=== PATIENT | female | born 1945 | race Caucasian/White ===

== ENCOUNTER 2016-07-16 13:27 | Emergency (ER) | payer MEDICARE ==
--- NOTE | ~2016-07-16 | CR63 ---
[facility]. [facility] A Service of [facility] & [facility] RADIOLOGY TEXT RESULTS PATIENT: FAINA PACE LOCATION: SED : [birth year] UNIT #: [id number] AGE: [address]: Pasha Carver MD SEX: F ORDER DR: [id number] [address] [address] [id number] E MR#: [id number] Acc #: [id number] NAME: FAINA PACE : 1945 SEX: F STUDY DATE/TIME: 07/16/2016 13:41 UNIT: SED ROOM: STUDY DESCRIPTION: CR Chest 2 View Attending Physician: Pasha Carver M.D. Ordering Physician: Pasha Carver M.D. Primary Care Physician: Willam Beal M.D. MEDICAL IMAGING REPORT This report is preliminary unless electronic signature is present. EXAM Chest PA and lateral, 07/16/2016 COMPARISON 10/15/2014 HISTORY Shortness of breath, cough and congestion for 2 days. FINDINGS PA and lateral views are obtained. Heart size is normal and the lungs appear clear. No acute process identified. CONCLUSION Stable chest. No active disease. Dictated by... Roberto Carlos Harp M.D. THIS IS AN ELECTRONICALLY VERIFIED REPORT Roberto Carlos Harp M.D. at 07/16/2016 5:07 PM Lucille TD: 07/16/2016 15:37 JOB #: [id number] MEDICAL IMAGING REPORT
[~2016-07-16 13:27] MED LIST: ADVAIR 250-501 EAC1 INH; ALBUTEROL0.83 MG/ML INH; ALBUTEROL17 GM INH; AZITHROMYCIN250 MG PO; FLEXERIL10 MG PO; IRON; LISINOPRIL; NO MEDICATIONS; NORVASC PO; PRINIVIL10 MG PO; PROAIR HFA8.5 GM INH; SPIRIVA18 MCG INH; SYMBICORT; TESSALON PERLE100 M1 PO; ULTRAM PO; VITAMIN D; ZESTORETIC 20-1 EACH PO; ZOCOR
== END 2016-07-16 14:35 | disposition home or self-care (01) ==
LOC: SED 13:27
DX: J44.1 Chronic obstructive pulmonary disease with (acute) exacerbation (principal); N18.9 Chronic kidney disease, unspecified
CPT/HCPCS: 71020; 94640; 99283

== ENCOUNTER → 2016-07-27 | Outpatient (CLI) | payer MEDICARE ==
--- NOTE | ~2016-07-27 | US77 ---
[facility] A Service [facility] RADIOLOGY TEXT RESULTS PATIENT: FAINA PACE LOCATION: [facility] : [birth year] UNIT #: [id number] AGE: [address]: Jaylon Blevins MD SEX: F ORDER DR: [id number] [place] [id number] O MR#: [id number] Acc #: [id number] NAME: FAINA PACE : 1945 SEX: F STUDY DATE/TIME: 07/27/2016 9:14 UNIT: [facility] ROOM: STUDY DESCRIPTION: US Kidney Bilateral Complete Attending Physician: Jaylon Blveins M.D. Referring Physician: Jaylon Blevins M.D. Ordering Physician: Jaylon Blevins M.D. Primary Care Physician: Willam Beal M.D. MEDICAL IMAGING REPORT This report is preliminary unless electronic signature is present. EXAM Renal ultrasound. INDICATIONS Chronic kidney disease. Patient had abnormal blood work a month ago. Followup study. TECHNIQUE Briones-scale and color Doppler sonographic images were obtained through the kidneys and bladder. FINDINGS Both kidneys I think are echogenic in appearance with some cortical thinning in keeping with history of chronic medical renal disease. There are bilateral renal cysts. Single largest cyst on the right measures up to 4.8 x 5.3 x 4.2 cm. No solid renal masses are seen in neither kidney. Left kidney the largest cyst measures 2.2 x 2.3 x 1.7 cm. Again no solid renal masses are seen. There is no hydronephrosis. The bladder appears within normal limits although the patient does have some post voiding residual. IMPRESSION 1. Both kidneys do appear somewhat echogenic with cortical thinning in keeping with history of chronic medical renal disease. 2. Bilateral renal cysts. 3. Patient's bladder appears unremarkable, although there is some postvoid residual. 1. Dictated by... Lanny Conner M.D. THIS IS AN ELECTRONICALLY VERIFIED REPORT [facility] A Service of [facility] RADIOLOGY TEXT RESULTS PATIENT: FAINA PACE LOCATION: [facility] #: [id number] : [birth year] UNIT #: [id number] AGE: [address]: Jaylon Blevins MD SEX: F ORDER DR: Lanny Conner M.D. at 07/27/2016 4:39 PM AFF/dj TD: 07/27/2016 14:29 JOB #: [id number] MEDICAL IMAGING REPORT
== END | disposition home or self-care (01) ==
LOC: SGUS 08:53
DX: N18.3 Chronic kidney disease, stage 3 (moderate) (principal); D63.1 Anemia in chronic kidney disease; N25.81 Secondary hyperparathyroidism of renal origin; E55.9 Vitamin D deficiency, unspecified; N28.1 Cyst of kidney, acquired
CPT/HCPCS: 76775

== ENCOUNTER 2016-09-01 10:15 | Emergency (ER) | payer MEDICARE | END 2016-09-01 10:56 | disposition home or self-care (01) | LOC: SED 10:15 | DX: L03.116 Cellulitis of left lower limb (principal); J44.9 Chronic obstructive pulmonary disease, unspecified; N18.3 Chronic kidney disease, stage 3 (moderate) | CPT/HCPCS: 99282 ==

== ENCOUNTER 2016-10-04 15:24 | Emergency (ER) | payer MEDICARE ==
--- NOTE | ~2016-10-04 | CR72 ---
[facility]. [facility] A Service of [facility] RADIOLOGY TEXT RESULTS PATIENT: FAINA PACE LOCATION: SED : [birth year] UNIT #: [id number] AGE: [address]: Reynaldo Gonzalez MD SEX: F ORDER DR: [id number] [address] [address] [id number] E MR#: [id number] Acc #: [id number] NAME: FAINA PACE. : 1945 SEX: F STUDY DATE/TIME: 10/04/2016 15:35 UNIT: SED ROOM: STUDY DESCRIPTION: CR Chest Single View Portable Attending Physician: Reynaldo Gonzalez M.D. Ordering Physician: Reynaldo Gonzalez M.D. Primary Care Physician: Willam Beal M.D. MEDICAL IMAGING REPORT This report is preliminary unless electronic signature is present. EXAM AP portable chest 10/04/2016 HISTORY Shortness of breath for 1 week worse over the last 2 days. FINDINGS An AP view is obtained. The cardiovascular configuration is stable. The lungs are clear. CONCLUSION Stable chest. No active disease. Dictated by... Roberto Carlos Harp M.D. THIS IS AN ELECTRONICALLY VERIFIED REPORT Roberto Carlos Harp M.D. at 10/05/2016 7:10 AM SOUTH/robert TD: 10/04/2016 16:48 JOB #: [id number] MEDICAL IMAGING REPORT Page 1 of 1
--- NOTE | ~2016-10-04 | EKG ---
PATIENT: FAINA PACE UNIT #: [id number] Ventricular Rate: 84 BPM Atrial Rate: 84 BPM P-R Interval: 190 ms QRS Duration: 92 ms Q-T Interval: 380 ms QTC Calculation(Bezet): 449 ms P [place]: 75 degrees Calculated R [place]: 72 degrees Calculated T [place]: 49 degrees Diagnosis Line: Normal sinus rhythm Diagnosis Line: Normal ECG Diagnosis Line: When compared with ECG of 21-MAY-2012 05:58, Diagnosis Line: No significant change was found Diagnosis Line: Confirmed by SACHIN DE LOS SANTOS MD ([id number]) on Diagnosis Line: 10/10/2016 8:49:31 AM INTERPRETING MD: FILIBERTO CLAY
[2016-10-04 16:21] LABS: BASOPHIL# 0.1 X10e3 (0-0.3); BASOPHIL% 0.7 % (0-2.5); DIFF IND NO; EOSINOPHIL# 0.6 X10e3 (0-0.7); EOSINOPHIL% 6.7 % (0.0-7.0); HEMATOCRIT 34.4 % (35.0-45.0); HEMOGLOBIN 11.5 gm/dL (12.0-16.0); LYMPHOCYTE# 1.5 X10e3 (1.0-3.5); LYMPHOCYTE% 17.5 % (17.0-45.0); MEAN CELL VOLUME 81.2 FL (83-96); MEAN CORPUSCULAR HEMOGLOBIN 27.2 PG (28-34); MEAN CORPUSCULAR HGB CONC 33.5 g/dL (30-36); MONOCYTE# 0.6 X10e3 (0-1.0); MONOCYTE% 6.7 % (3.0-12.0); NEUTROPHIL# 5.7 X10e3 (1.5-7.1); NEUTROPHIL% 68.4 % (40-75); PLATELET COUNT 242 X10e3 (140-420); RED BLOOD COUNT 4.24 X10e (3.90-5.30); RED CELL DISTRIBUTION WIDTH 15.6 % (11.0-15.5); WHITE BLOOD COUNT 8.3 X10e3 (4.0-10.5)
[2016-10-04 16:26] LABS: POC - CKMB 2.8 ng/mL (0.0-7.9); POC - TROPONIN <0.05 ng/mL (<=0.05)
[2016-10-04 16:38] LABS: ALBUMIN SERUM 4.5 g/dL (3.5-5.0); BILIRUBIN, DIRECT 0.1 mg/dL (0.0-0.2); BILIRUBIN,INDIRECT 0.1 mg/dL (0.0-0.9); BILIRUBIN,TOTAL 0.2 mg/dL (0.2-2.0); BUN/CREATININE RATIO 28.66; CALCIUM SERUM 9.7 mg/dL (8.4-10.2); CREATININE SERUM 1.5 mg/dL (0.6-1.4); GLOM FILT RATE Estimated 35.2 mL/min (>60); POTASSIUM 4.3 mmol/L (3.5-5.1); PROTEIN TOTAL SERUM 7.8 g/dL (6.0-8.3)
== END 2016-10-04 17:14 | disposition home or self-care (01) ==
LOC: SED 15:24
PROVIDERS: Emergency Medicine
DX: J44.9 Chronic obstructive pulmonary disease, unspecified (principal); I12.9 Hypertensive chronic kidney disease with stage 1 through stage 4 chronic kidney disease, or unspecified chronic kidney disease; N18.3 Chronic kidney disease, stage 3 (moderate); E78.00 Pure hypercholesterolemia, unspecified; Z87.891 Personal history of nicotine dependence; Z79.899 Other long term (current) drug therapy
CPT/HCPCS: 71010; 80048; 80076; 82553; 84484; 85025; 93005; 94640; 96372; 99283; J2930

== ENCOUNTER → 2016-10-24 | Outpatient (CLI) | payer MEDICARE, BC ==
[2016-10-24 09:30] LABS: HEMATOCRIT 34.2 % (35.0-45.0); HEMOGLOBIN 11.4 gm/dL (12.0-16.0); MEAN CELL VOLUME 81.2 FL (83-96); MEAN CORPUSCULAR HGB CONC 33.3 g/dL (30-36); MEAN PLATELET VOLUME 7.4 FL (6.5-11.5); RED BLOOD COUNT 4.21 X10e (3.90-5.30); RED CELL DISTRIBUTION WIDTH 15.1 % (11.0-15.5); WHITE BLOOD COUNT 6.5 X10e3 (4.0-10.5)
[2016-10-24 09:38] LABS: URINE APPEARANCE CLEAR; URINE BILIRUBIN NEG (NEG); URINE BLOOD TRACE-INTACT (NEG); URINE COLOR YELLOW; URINE GLUCOSE NEG (NORM); URINE KETONE NEG (NEG); URINE LEUKOCYTE ESTERASE TRACE (NEG); URINE NITRATE NEG (NEG); URINE PH 5.5 (5-8); URINE PROTEIN NEG (NEG); URINE UROBILINOGEN 0.2 MG/DL (NORM)
[2016-10-24 10:02] LABS: MICRO INDICATED? YES
[2016-10-24 10:15] LABS: BUN/CREATININE RATIO 21.25; CALCIUM SERUM 9.1 mg/dL (8.4-10.2); CREATININE SERUM 1.6 mg/dL (0.6-1.4); GLOM FILT RATE Estimated 32.6 mL/min (>60); POTASSIUM 4.2 mmol/L (3.5-5.1)
[2016-10-24 10:16] LABS: URINE BACTERIA 1+ (NEG); URINE RBC 0-2 /[HPF] (0-2); URINE SQUAMOUS EPITHELIAL CELL OCCAS /[HPF]; URINE WBC 25-50 /[HPF] (0-5)
[2016-10-24 12:14] LABS: CREATININE,RANDOM URINE 82 mg/dL; TOTAL PROTEIN,RANDOM URINE <10 mg/dl (<10)
== END | disposition home or self-care (01) ==
LOC: SLAB 09:11
PROVIDERS: Internal Medicine Nephrology
DX: N18.3 Chronic kidney disease, stage 3 (moderate) (principal); D63.1 Anemia in chronic kidney disease; N25.81 Secondary hyperparathyroidism of renal origin; E55.9 Vitamin D deficiency, unspecified
CPT/HCPCS: 36415; 80048; 81003; 82570; 84156; 85027

== ENCOUNTER → 2017-01-04 | Outpatient (CLI) | payer MEDICARE ==
--- NOTE | ~2017-01-04 | MY11 ---
[facility] A Service [facility] RADIOLOGY TEXT RESULTS PATIENT: FAINA PACE LOCATION: [facility] : [birth year] UNIT #: [id number] AGE: [address]: Willam Beal MD SEX: F ORDER DR: [id number] [place] [id number] O MR#: [id number] Acc #: [id number] NAME: FAINA PACE : 1945 SEX: F STUDY DATE/TIME: 01/04/2017 15:33 UNIT: [facility] ROOM: STUDY DESCRIPTION: MY Mammogram Screening Dig Alex Attending Physician: Willam Beal M.D. Referring Physician: Willam Beal M.D. Ordering Physician: Willam Beal M.D. Primary Care Physician: Willam Beal M.D. MEDICAL IMAGING REPORT This report is preliminary unless electronic signature is present. EXAM Bilateral Digital Screening Mammogram with CAD INDICATION Breast cancer screening. COMPARISON July 09, 2015 and May 24, 2014 INDICATION A 71-year-old asymptomatic female. No personal or family history of breast cancer. FINDINGS The breasts are almost entirely fatty. No suspicious findings are present. IMPRESSION No mammographic evidence of malignancy. Annual screening mammography and clinical breast exam are recommended. A result letter will be sent to the patient. Patients over the age of 40 are entered into a reminder system with target due date for the next mammogram. BIRADS: 1 Negative Dictated by... Burke Martinez M.D. THIS IS AN ELECTRONICALLY VERIFIED REPORT [facility] A Service [facility] RADIOLOGY TEXT RESULTS PATIENT: FAINA PACE LOCATION: [facility] : [birth year] UNIT #: [id number] AGE: [address]: Willam Beal MD SEX: F ORDER DR: Burke Martinez M.D. at 01/10/2017 9:50 PM Edgar TD: 01/07/2017 11:25 JOB #: [id number] MEDICAL IMAGING REPORT Page 1 of 1
== END | disposition home or self-care (01) ==
LOC: SMAM 14:52
DX: Z12.31 Encounter for screening mammogram for malignant neoplasm of breast (principal)
CPT/HCPCS: G0202

== ENCOUNTER → 2017-01-07 | Outpatient (CLI) | payer MEDICARE ==
[2017-01-07 09:55] LABS: HEMATOCRIT 34.5 % (35.0-45.0); HEMOGLOBIN 11.4 gm/dL (12.0-16.0); MEAN CELL VOLUME 80.7 FL (83-96); MEAN CORPUSCULAR HEMOGLOBIN 26.6 PG (28-34); MEAN PLATELET VOLUME 7.5 FL (6.5-11.5); RED BLOOD COUNT 4.27 X10e (3.90-5.30); RED CELL DISTRIBUTION WIDTH 15.3 % (11.0-15.5); WHITE BLOOD COUNT 5.1 X10e3 (4.0-10.5)
[2017-01-07 09:59] LABS: URINE APPEARANCE CLEAR; URINE BILIRUBIN NEG (NEG); URINE BLOOD NEG (NEG); URINE COLOR YELLOW; URINE GLUCOSE NEG (NORM); URINE KETONE NEG (NEG); URINE NITRATE NEG (NEG); URINE PH 5.5 (5-8); URINE PROTEIN NEG (NEG); URINE SPECIFIC GRAVITY 1.015 (1.003-1.035); URINE UROBILINOGEN 0.2 MG/DL (NORM)
[2017-01-07 10:00] LABS: MICRO INDICATED? NO; URINE LEUKOCYTE ESTERASE NEG (NEG)
[2017-01-07 10:53] LABS: BUN/CREATININE RATIO 24.66; CALCIUM SERUM 9.2 mg/dL (8.4-10.2); CREATININE SERUM 1.5 mg/dL (0.6-1.4); GLOM FILT RATE Estimated 35.2 mL/min (>60); PHOSPHOROUS 3.7 mg/dL (2.5-4.6); POTASSIUM 4.7 mmol/L (3.5-5.1)
[2017-01-07 15:32] LABS: CREATININE,RANDOM URINE 82 mg/dL; TOTAL PROTEIN,RANDOM URINE <10 mg/dl (<10)
[2017-01-12 09:09] LABS: CALCIUM (PTHINTACT) 9.4 mg/dL (8.6-10.4)
== END | disposition home or self-care (01) ==
LOC: SLAB 09:35
PROVIDERS: Internal Medicine Nephrology
DX: N18.3 Chronic kidney disease, stage 3 (moderate) (principal); D63.1 Anemia in chronic kidney disease; N25.81 Secondary hyperparathyroidism of renal origin; N39.0 Urinary tract infection, site not specified; R53.1 Weakness
CPT/HCPCS: 36415; 80048; 81003; 82306; 82310; 82570; 83540; 83550; 83970; 84100; 84156; 85027; 87086

== ENCOUNTER → 2017-02-01 | Outpatient (CLI) | payer MEDICARE ==
--- NOTE | ~2017-02-01 | BD1 ---
[facility] A Service of [facility] RADIOLOGY TEXT RESULTS PATIENT: FAINA PACE LOCATION: [facility] : [birth year] UNIT #: [id number] AGE: [address]: Willam Beal MD SEX: F ORDER DR: [id number] [address] [address] [id number] O MR#: [id number] Acc #: [id number] NAME: FAINA PACE : 1945 SEX: F STUDY DATE/TIME: 02/01/2017 9:09 UNIT: [facility] ROOM: STUDY DESCRIPTION: Dexa Bone Dens 1+ Site Attending Physician: Willam Beal M.D. Referring Physician: Willam Beal M.D. Ordering Physician: Willam Beal M.D. Primary Care Physician: Willam Beal M.D. MEDICAL IMAGING REPORT This report is preliminary unless electronic signature is present. EXAM Bone density spine/hip, 02/01/2017 HISTORY Screening. 35-year smoking history. FINDINGS Bone density scanning performed upper 4 lumbar vertebral segments of both proximal femurs [age]-year-old 89-pound female. No comparisons. L1-L4: Bone low density 1.438 g/cm2 for a T-score 2.1 standard deviation above the mean for a reference population normal young individuals and a Z-score 2.9 standard deviations above the mean for age-matched population. Left femur: Total bone low density 1.097 g/cm2 for T-score 0.7 standard deviation above the mean for reference population normal young individuals and a Z-score 1.5 standard deviation above the mean for age-matched population. In the left femoral neck specifically the bone mineral density is 0.950 g/cm2 for a T-score 0.6 standard deviations below mean for a reference population normal young individuals and a Z-score 0.4 standard deviations above the mean for age-match population. Proximal right femur: Total bone mineral density 1.001 g/cm2 for a T-score 0.1 standard deviations below mean for a reference population normal young individuals and Z-score 0.7 standard deviations above the mean for age-matched population. Right femoral neck bone density 0.880 g/cm2 for a T-score 1.1 standard deviation below mean for a reference population normal young individuals and Z-score 0.1 standard deviations below the mean for age-matched population. IMPRESSION [facility] A Service of [facility] RADIOLOGY TEXT RESULTS PATIENT: FAINA PACE LOCATION: [facility] : [birth year] UNIT #: [id number] AGE: [address]: Willam Beal MD SEX: F ORDER DR: Osteopenia in the right femoral neck. Patient felt to be at increased risk for fracture. Treatment options may be considered. Continued surveillance is recommended. Dictated by... Roberto Carlos Corley M.D. THIS IS AN ELECTRONICALLY VERIFIED REPORT Roberto Carlos Corley M.D. at 02/01/2017 2:30 PM DAYANARA/caroline TD: 02/01/2017 13:00 JOB #: [id number] MEDICAL IMAGING REPORT Page 1 of 1
== END | disposition home or self-care (01) ==
LOC: SRAD 08:59
DX: Z13.820 Encounter for screening for osteoporosis (principal); M85.851 Other specified disorders of bone density and structure, right thigh; Z78.0 Asymptomatic menopausal state
CPT/HCPCS: 77080

== ENCOUNTER → 2017-02-04 | Outpatient (CLI) | payer OTHER ==
--- NOTE | ~2017-02-04 | ST ---
Unit #: [id number] #: [id number] Patient: FAINA PACE [id number] [facility]. [address] [address] [id number] O MR#: [id number] NAME: FAINA PACE : 1945 SEX: F STUDY DATE/TIME: UNIT: [facility] ROOM: STUDY DESCRIPTION: Stress Test Attending Physician: Willam Beal M.D. Referring Physician: Willam Beal M.D. Primary Care Physician: Willam Beal M.D. CARDIOLOGY REPORT EXAM Stress Test INDICATION Chest discomfort/pain. SUMMARY Patient underwent Lexiscan protocol. Patient's resting heart rate 69 beats per minute which increased to 104 beats per minute with Lexiscan infusion. Patient's resting blood pressure 144/71 mmHg which increased to 147/65 mmHg. Patient's achieved heart rate represented 68% of the maximum age predicted heart rate. Patient's resting ECG shows normal sinus rhythm with normal ST segments. Patient had isolated PAC noted during Lexiscan. The ST segments remained preserved. No changes. There is no supraventricular or ventricular arrhythmia noted. No pauses noted. CONCLUSION 1. Negative ECG portion of the Lexiscan study for ischemia. 2. Perfusion imaging dictated below. Dictated by... Bhavani Weiss M.D. MT/hernan TD: 02/05/2017 05:43 JOB #: [id number] Unit #: [id number] #: [id number] Patient: FAINA PACE CARDIOLOGY REPORT Page 1 of 1 X BHAVANI WEISS MD CARDIOLOGY REPORT
--- NOTE | ~2017-02-04 | TH ---
Unit #: [id number] #: [id number] Patient: FAINA PACE [id number] [facility]. [address] [address] [id number] O MR#: [id number] NAME: FAINA PACE : 1945 SEX: F STUDY DATE/TIME: UNIT: [facility] ROOM: STUDY DESCRIPTION: Nuclear Study Attending Physician: Willam Beal M.D. Referring Physician: Willma Beal M.D. Primary Care Physician: Willam Beal M.D. CARDIOLOGY REPORT EXAM Perfusion Imaging INDICATION Chest discomfort/pain. SUMMARY Patient underwent nuclear stress test. Received a resting dose of 11.45 mCi and a stress dose of 36.3 mCi. On gated imaging, patient appears to have hyperdynamic LV function with LVEF of 82%. On perfusion imaging, comparing rest and stress imaging, there appears to be no reversible perfusion defects. Raw images show appropriate uptake with no abnormal uptake seen. CONCLUSION 1. No obvious ischemia. 2. Preserved ejection fraction. 3. ECG portion dictated above. Dictated by... Bhavani Weiss M.D. AL/df TD: 02/05/2017 06:08 JOB #: [id number] Unit #: [id number] #: [id number] Patient: FAINA PACE CARDIOLOGY REPORT Page 1 of 1 X BHAVANI WEISS MD CARDIOLOGY REPORT
== END | disposition home or self-care (01) ==
LOC: CNUC 06:54
DX: R07.89 Other chest pain (principal); I10 Essential (primary) hypertension; E78.5 Hyperlipidemia, unspecified
CPT/HCPCS: 78452; 93017; A9500; J2785